=== PATIENT | female | born 1965 | race Caucasian/White ===

== ENCOUNTER 2018-12-20 17:07 | Inpatient (IN) | payer SELFPAY ==
[~2018-12-20] VITALS: Ht 167.6 cm; Wt 81.6 kg
[2018-12-20 17:21] VITALS: BP 142/79
--- NOTE | 2018-12-20 17:30 | NUR ---
PT PRESENTS TO ED WITH C/O LEFT SIDE NUMBNESS SINCE 0330 AM. PT DENIES ANY PAIN. PT ALERT AND ORIENTED TO PERSON, PLACE, TIME AND EVENT. PUPILS EQUAL AND REACTIVE TO LIGHT BILATERAL. NO FACIAL DROP OR SLURRED SPEECH. BILATERAL HAND DIDACTIC INSTRUCTOR EQUAL; BILATERAL FOOT PUSH EQUAL. PLACED IN GOWN; CONNECTED TO VP PUBLIC RELATIONS. GURNEY LOCKED AND IN LOWEST POSITION. ERMD TO EVALUATE PT.
[2018-12-20] MEDS ORDERED: LORazepam 2 MG/ML VIAL IVP ONE (17:50)
[2018-12-20] MEDS ORDERED: NACL 0.9% 1,000 ML IV ONE (17:50)
--- NOTE | 2018-12-20 18:10 | NUR ---
LAB AT BEDSIDE.
--- NOTE | 2018-12-20 18:12 | NUR ---
22G IV TO RIGHT HAND ESTABLISHED; IV MEDICATION AND IVF STARTED ORDERED. WILL CONTINUE TO MONITOR.
[2018-12-20 18:17] LABS: BASOPHILS % (AUTO) 0.3 % (0.0-2.0); EOSINOPHILS % (AUTO) 0.1 % (0.0-4.0); HEMATOCRIT 42.9 % (36-48); HEMOGLOBIN 15.1 g/dL (12.0-16.0); MEAN CORPUSCULAR HEMOGLOBIN 31 pg (27-31); MEAN CORPUSCULAR HGB CONC 35 g/dL (33-37); MEAN CORPUSCULAR VOLUME 87.3 fL (80-94); MONOCYTES # (AUTO) 0.1 K/uL (0.8-1.0); NEUTROPHILS # (AUTO) 5.6 K/uL (1.8-7.7); NEUTROPHILS % (AUTO) 83.6 % (42.2-75.2); PLATELET COUNT (AUTO) 284 K/uL (140-450); RED BLOOD CELL COUNT(AUTO) 4.92 MIL/uL (4.20-5.40); RED CELL DISTRIBUTION WIDTH 12.8 % (11.6-13.7); WHITE BLOOD COUNT (AUTO) 6.7 K/uL (4.8-10.8)
--- NOTE | 2018-12-20 18:25 | NUR ---
PT TO CT SCAN VIA [place].
[2018-12-20 18:28] LABS: ANION GAP 16.1 (8-16); CARBON DIOXIDE 26.5 mmol/L (21-32); CREATININE 0.8 mg/dL (0.6-1.3); POTASSIUM 3.6 mmol/L (3.5-5.1)
[2018-12-20 18:33] LABS: PROTHROMBIN TIME 9.4 secs (10.8-13.4)
[2018-12-20 18:34] LABS: ALBUMIN 4.6 g/dL (3.4-5.0); TOTAL BILIRUBIN 0.6 mg/dL (0.0-1.0)
--- NOTE | 2018-12-20 18:39 | NUR ---
PT BACK FROM CT
--- NOTE | 2018-12-20 18:46 | NUR ---
PT STATES SHE DOES TAKE HOME MEDICATIONS, ONLY MEDICATION SHE TOOK WAS 1 TIME TODAY INJECTION OF BETAMETHASONA, PT HAS BOX FROM MEDICINE APPEARS TO BE MADE IN [place].
[2018-12-20] MEDS ORDERED: LORazepam 2 MG/ML VIAL IM/IVP PRN (20:05)
[2018-12-20] MEDS ORDERED: ACETAMINOPHEN 325 MG TAB PO PRN (20:05)
[2018-12-20] MEDS ORDERED: MORPHINE SULFATE 2 MG/ML SYR IVP PRN (20:05)
[2018-12-20] MEDS ORDERED: DOCUSATE SODIUM 100 MG GELCAP PO PRN (20:05)
[2018-12-20] MEDS ORDERED: ZOLPIDEM 5 MG TAB PO PRN (20:05)
[2018-12-20 20:52] LABS: MAGNESIUM 1.8 mg/dL (1.8-2.4); PHOSPHORUS 2.9 mg/dL (2.5-4.9); THYROID STIMULATING HORMONE 1.04 uIU/mL (0.34-3.74)
--- NOTE | 2018-12-20 21:20 | NUR ---
PT AND PT'S FAMILY MEMBER EXPRESSED CONCERN ABOUT GETTING ADMITTED TO HOSPITAL, STATED "WE DON'T WANT TO BE ADMITTED UNLESS ABSOLUTELY NECESSARY." DR DONIS MADE AWARE AND AT BEDSIDE TO SPEAK WITH PT.
[2018-12-20] MEDS ORDERED: LABETALOL 100 MG TAB PO SCH (22:00)
[2018-12-20] MEDS ORDERED: LABETALOL 100 MG TAB ONE (22:26)
--- NOTE | 2018-12-20 23:14 | NUR ---
PT SLEEPING IN BED, AROUSABLE TO NAME. FAMILY AT BEDSIDE. VS NOTED, RR EVEN AND UNLABORED.
--- NOTE | 2018-12-20 23:20 | NUR ---
PT GIVEN SNACKS AND WATER
--- NOTE | 2018-12-20 23:39 | NUR ---
Dr. Sla at patient bedside.
--- NOTE | 2018-12-20 23:40 | NUR ---
PT AND PT'S FAMILY MEMBER EXPRESSED CONCERN WANTING TO GO AMA. DR DONIS MADE AWARE AND AT BEDSIDE TO SPEAK WITH PT REGARDING RISKS AND COMPLICATIONS OF AMA.
[2018-12-21] VITALS (7 sets, daily range): BP systolic 108–144; BP diastolic 56–80
--- NOTE | 2018-12-21 00:16 | NUR ---
Dr. Sal at patient bedside.
--- NOTE | 2018-12-21 00:17 | NUR ---
PT'S ARRIVED, DR DONIS AT BEDSIDE TO SPEAK WITH PT REGARDING RISKS AND COMPLICATIONS OF AMA. PT AND PT'S FAMILY AGREED TO PROCEED WITH ADMISSION
--- NOTE | 2018-12-21 00:30 | NUR ---
Patient will be admitted to care of DR PECK. Admited to TELE. Will go to room 119A. Belongings list completed. Report to FREDERICK RN AT BEDSIDE.
--- NOTE | 2018-12-21 00:40 | NUR ---
ADMITTED A 53F FROM ER. CAME BY [facility]. TELE PT. AWAKE,ALERT AND ORIENTED X4, BAHAMIAN SPEAKING. WITH FAMILY AT BEDSIDE. VITAL SIGNS TAKEN .HR -106 . MRSA NARES NEED TO COLLECT. EXPLAINED TO PT/FAMILY. ORIENTED TO HOSPITLA ROUTINES. CALL LIGHT PLACED WITHIN REACH. BED ON LOW POSITION. SIDE RAILS UP X2. HL ON THE RT HANDG#22. CLEAR AND PATENT. PT/FAMILY WANTS BAHAMIAN SPEAKING NURSE. ISAAC REECEBUSINESS PROJECT ANALYST MADE AWARE. WILL HAVE JAMIE ADMIT PT.
[2018-12-21] MEDS: HYDROcodone/APAP 5/325 MG 1 TAB TAB PO PRN ×2 (01:40→09:13)
[2018-12-21] MEDS: NACL 0.9% 1,000 ML IV SCH ×2 (01:40→12:42)
[2018-12-21] MEDS: ONDANSETRON 4 MG/2 ML VIAL IM/IVP PRN ×2 (01:40→08:26)
--- NOTE | 2018-12-21 01:40 | NUR ---
ADMINISTERED NORCO FOR PAIN-HEADACHE AND ZOFRAN IVP FOR NAUSEA. DR. WEINER AT PATIENTS BEDSIDE.
--- NOTE | 2018-12-21 03:00 | NUR ---
MADE ROUNDS. ASLEEP. NO S/S OF ANY DISCOMFORT NOTED.
[2018-12-21 03:31] LABS: APPEARANCE,URINE SL CLOUDY (CLEAR); BILIRUBIN,URINE NEGATIVE (NEGATIVE); BLOOD, URINE NEGATIVE (NEGATIVE); COLOR,URINE YELLOW (YELLOW); LEUKOCYTE ESTERASE ,URINE NEGATIVE (NEGATIVE); NITRITE, URINE NEGATIVE (NEGATIVE); UGLUCOSE NEGATIVE (NEGATIVE)
[2018-12-21 03:58] LABS: BARBITURATE, URINE NEG. ng/ml (NEG <=200); BENZODIAZEPINE, URINE NEG. ng/mL (NEG <=200); CANNABINOID, URINE NEG. ng/mL (NEG <=50); COCAINE, URINE NEG. ng/mL (NEG <=300); OPIATE, URINE NEG. ng/mL (NEG <=2000); PHENCYCLIDINE SCREEN,URINE NEG. ng/mL (NEG <=25)
--- NOTE | 2018-12-21 04:30 | NUR ---
MADE ROUNDS. VITLA SIGNS TAKEN LATE93/MIN. NO C/O ANY PAIN NOR NAUSEA NOTED. ST HR-
--- NOTE | 2018-12-21 06:00 | NUR ---
SCD MACHINE IN BED BUT PT AMBULATORY.
[2018-12-21] MEDS ORDERED: MECLIZINE 25 MG TAB PO PRN (06:35)
--- NOTE | 2018-12-21 06:45 | NUR ---
MADE ROUNDS. PT AWAKE. NO CO ANY DISCOMFORT NOTED.
[2018-12-21] MEDS ORDERED: DEXTROSE 50% 50 ML SYR IVP PRN (06:50)
[2018-12-21] MEDS ORDERED: INSULIN LISPRO SLIDING SCALE 100 UNITS/ML VIAL SUBQ PRN (06:50)
--- NOTE | 2018-12-21 07:10 | NUR ---
ENDORSED PT IN STABLE CONDITION TO AM NURSE.
[2018-12-21 07:17] LABS: CARBON DIOXIDE 22.8 mmol/L (21-32); CREATININE 0.7 mg/dL (0.6-1.3); POTASSIUM 3.8 mmol/L (3.5-5.1)
[2018-12-21 07:23] LABS: BASOPHILS % (AUTO) 0.1 % (0.0-2.0); HEMATOCRIT 37.5 % (36-48); LYMPHOCYTES # (AUTO) 1.2 K/uL (2.5-16.5); LYMPHOCYTES % (AUTO) 14.9 % (20.5-51.1); MEAN CORPUSCULAR HEMOGLOBIN 31 pg (27-31); MEAN CORPUSCULAR HGB CONC 35 g/dL (33-37); MEAN CORPUSCULAR VOLUME 88.2 fL (80-94); MONOCYTES # (AUTO) 0.4 K/uL (0.8-1.0); MONOCYTES % (AUTO) 4.9 % (1.7-9.3); NEUTROPHILS # (AUTO) 6.3 K/uL (1.8-7.7); NEUTROPHILS % (AUTO) 80.1 % (42.2-75.2); PLATELET COUNT (AUTO) 265 K/uL (140-450); RED BLOOD CELL COUNT(AUTO) 4.25 MIL/uL (4.20-5.40); RED CELL DISTRIBUTION WIDTH 13.1 % (11.6-13.7); WHITE BLOOD COUNT (AUTO) 7.8 K/uL (4.8-10.8)
[2018-12-21] MEDS: BLOOD GLUCOSE MONITORING 1 DEV DEV FS SCH ×2 (07:30→11:33)
--- NOTE | 2018-12-21 07:30 | NUR ---
BLOOD GLUCOSE CHECKED, 156. PT REFUSED INSULIN. DR DONIS AWARE.
--- NOTE | 2018-12-21 07:45 | NUR ---
RECEIVED BEDSIDE REPORT FROM ISAAC BLACKWELL AND ISAAC DAMON. PT STABLE, AWAKE, ALERT AND ORIENTED X4. NO SIGNS OF DISTRESS NOTED. DENIES PAIN OR SOB. NO REDNESS, SWELLING, OR INFLAMMATION NOTED ON IV SITE. CALL MELTON WITHIN REACH. BED IN LOWEST POSITION. SAFETY MEASURES IN PLACE. PLAN OF CARE REVIEWED.
[2018-12-21 07:54] LABS: CHOL/HDL RATIO 7.3 (1-4.5)
--- NOTE | 2018-12-21 08:30 | NUR ---
PATIENT HAS BEEN SCREENED AND CATEGORIZED MODERATE NUTRITION RISK. PATIENT WILL BE SEEN WITHIN 3-5 DAYS OF ADMISSION. 12/23/18SHAGGY [address]
--- NOTE | 2018-12-21 08:30 | NUR ---
ADMINISTERED PRN ZOFRAN FOR PT C/O NAUSEA. PT TOLERATED WELL. WILL CONTINUE TO MONITOR. Addendum: 12/21/18 at 1245 by Mariela Arora RN PT COMPLAINING OF NAUSEA AND VOMITING.
--- NOTE | 2018-12-21 09:14 | NUR ---
ADMINISTERED PRN NORCO FOR C/O 6/10 HEADACHE. PT TOLERATED WELL. WILL CONTINUE TO MONITOR.
[2018-12-21] MEDS ORDERED: LORazepam 1 MG TAB PO SCH (10:30)
--- NOTE | 2018-12-21 11:34 | NUR ---
PT REFUSED SCHEDULED ATIVAN. PT IS CALM AND SLEEPING. BLOOD GLUCOSE CHECKED, 138, NO COVERAGE NEEDED. WILL CONTINUE TO MONITOR. FAMILY AT THE BEDSIDE.
--- NOTE | 2018-12-21 12:20 | NUR ---
ORTHOSTATIC BLOOD PRESSURE CHECKED, INFORMED DR STEPHENSON REGARDING RESULTS. NO SIGNS OF ORTHOSTATIC HYPOTENSION NOTED.
--- NOTE | 2018-12-21 12:43 | NUR ---
ADMINISTERED PRN ANTIVERT FOR C/O DIZZINESS. PT TOLERATED WELL. WILL CONTINUE TO MONITOR. DR STEPHENSON AT THE BEDSIDE.
--- NOTE | 2018-12-21 14:20 | NUR ---
D/C INSTRUCTIONS AND PAPERWORK GIVEN PER MD ORDER. PT AND FAMILY VERBALIZED UNDERSTANDING. QUESTIONS AND CONCERNS WERE ADDRESSED. FAMILY WAS CONCERNED ABOUT PT'S BILLING AND INSURANCE. PER FAMILY, [facility] PROCED[facility] RN IS SUPPOSED TO FOLLOW UP WITH THEM. CALLED [facility], INFORMED BY STAFF THAT SHE WAS IN A MEETING. PT AND FAMILY REFUSED TO WAIT FOR PROCEDURES RN. ENCOURAGED PT AND FAMILY TO CALL HOSPITAL'S PROCEDURES RN TO FOLLOW UP AFTER DISCHARGE. PT'S DAUGHTER VERBALIZED UNDERSTANDING. PT STABLE, NO NAUSEA AND VOMITING NOTED. DR STEPHENSON AT THE BEDSIDE TO ADDRESS PT AND FAMILY'S CONCERNS REGARDING DISCHARGE INSTRUCTIONS. D/C IV, CATHETER TIP INTACT, BLEEDING CONTROLLED. SKIN INTACT, PNEUMONIA AND FLU VACCINE NOT APPLICABLE. PT HAS ALL OF BELONGINGS INCLUDING ABDOMINAL XRAY CD. PT WILL BE DRIVEN HOME BY DAUGHTER AND . ESCORTED PT TO THE LOBBY. Addendum: 12/21/18 at 1458 by Mariela Arora RN PT [id number], COMMUNICATES APPROPRIATELY WITH STAFF, WALKS WITH STEADY GAIT.
== END 2018-12-21 14:20 | disposition home or self-care (01) | DRG 72 ==
LOC: MED 17:07 → MTU 19:52 → UNDOADMIN 19:52 → MTU 20:04
PROVIDERS: ADMIT General Practice; ATTEND General Practice
DX: G96.9 Disorder of central nervous system, unspecified (principal); R00.0 Tachycardia, unspecified; E83.52 Hypercalcemia; R74.0 Nonspecific elevation of levels of transaminase and lactic acid dehydrogenase [LDH]; R73.9 Hyperglycemia, unspecified; T38.0X5A Adverse effect of glucocorticoids and synthetic analogues, initial encounter; Z90.710 Acquired absence of both cervix and uterus; Y92.89 Other specified places as the place of occurrence of the external cause
CPT/HCPCS: 36415; 70450; 70490; 74018; 80048; 80053; 80305; 81001; 81003; 82948; 83036; 83690; 83735; 84100; 84443; 84484; 85025; 85610; 85730; 87081; 93005; 96361; 96374; 99285; J1815; J2060; J2405; J7030; J8597; Q0092